=== PATIENT | female | born 1965 | race American Indian/Alaskan Native ===

== ENCOUNTER 2016-07-24 20:45 | Emergency (ER) | payer OTHER ==
[2016-07-24 21:08] VITALS: BP 127/87
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
[2016-07-25] MEDS ORDERED: NORCO 5/325 PO ONE (00:24)
--- NOTE | 2016-07-25 10:43 | XRay Report ---
LEFT ELBOW THREE VIEWS: 07/24/16 20:45:00 CLINICAL: Pain. FINDINGS: Normal bones, joints and soft tissues. No fracture or dislocation. IMPRESSION: Normal.
--- NOTE | 2016-07-25 10:43 | XRay Report ---
LEFT SHOULDER THREE VIEWS: 07/24/16 20:45:00 CLINICAL: Pain FINDINGS: No fracture or dislocation. Normal glenohumeral joint. Normal AC joint. The soft tissues are normal. IMPRESSION: Normal.
--- NOTE | 2016-07-25 10:44 | XRay Report ---
LEFT WRIST FOUR VIEWS:07/24/16 20:45:00 CLINICAL: Fall and pain. FINDINGS: Normal bones, joints and soft tissues. No fracture or dislocation. IMPRESSION: Normal
== END 2016-07-25 01:40 | disposition home or self-care (01) ==
LOC: ED 20:45
DX: M25.532 Pain in left wrist (principal); M79.602 Pain in left arm; M25.512 Pain in left shoulder; F17.200 Nicotine dependence, unspecified, uncomplicated; W19.XXXA Unspecified fall, initial encounter; Y93.89 Activity, other specified; Y99.9 Unspecified external cause status; Y92.89 Other specified places as the place of occurrence of the external cause